=== PATIENT | male | born 1960 | race Hispanic/Latino ===

== ENCOUNTER 2023-03-05 05:58 | Day surgery (SDC) | payer OTHER ==
[2023-02-28 12:26] VITALS: BP 178/91; PULSE 79; RESP 19
[2023-02-28 12:32] LABS: BASOPHILS # (AUTO) 0.02 K/uL (0.00-0.20); BASOPHILS % (AUTO) 0.5 % (0.0-5.0); EOSINOPHILS # (AUTO) 0.11 K/uL (0.00-0.70); IMMATURE GRANULOCYTE ABSOLUTE 0.01 K/uL (0-1); LYMPHOCYTES # (AUTO) 1.4 K/uL (1.0-4.8); LYMPHOCYTES % (AUTO) 37.3 % (21.0-51.0); MEAN CORPUSCULAR HEMOGLOBIN 34.7 pg (27.0-33.0); MEAN CORPUSCULAR HGB CONC 34.8 g/dL (32.0-36.0); MEAN CORPUSCULAR VOLUME 99.8 fL (79-99); MONOCYTES # (AUTO) 0.4 K/uL (0.1-1.0); MONOCYTES % (AUTO) 10.6 % (3.0-13.0); NEUTROPHILS # (AUTO) 1.8 K/uL (1.8-7.7); NEUTROPHILS % (AUTO) 48.3 % (40.0-77.0); PLATELET COUNT (AUTO) 150 K/uL (130-400); RED BLOOD CELL COUNT(AUTO) 4.21 MIL/uL (4.50-6.20); RED CELL DISTRIBUTION WIDTH 12.6 % (11.0-15.5); WHITE BLOOD COUNT (AUTO) 3.7 K/uL (4.8-10.8)
[2023-02-28 12:42] LABS: ADD UA MICROSCOPIC YES; APPEARANCE,URINE CLEAR (CLEAR); BILIRUBIN,URINE NEGATIVE (NEGATIVE); COLOR,URINE LIGHT-YELLOW (YELLOW); GLUCOSE, URINE (UA) NEGATIVE (NEGATIVE); KETONES,URINE NEGATIVE (NEGATIVE); LEUKOCYTE ESTERASE ,URINE NEGATIVE Leu/uL (NEGATIVE); NITRATE,URINE NEGATIVE (NEGATIVE); PH,URINE 5.5 (5.0-8.0); PROTEIN,URINE 30 mg/dL (NEGATIVE); UROBILINOGEN,URINE 0.2 mg/dL (0.2-1.0)
[2023-02-28 12:43] LABS: WBC,URINE 0-1 /HPF (0-1)
[2023-02-28 12:45] LABS: INR 1.04 (0.85-1.15)
[2023-02-28 12:46] LABS: PARTIAL THROMBOPLASTIN TIME 30.4 SEC (26.3-35.5)
[2023-02-28 12:52] LABS: CREATININE 0.9 mg/dL (0.5-1.5); POTASSIUM 4.3 mmol/L (3.5-5.1)
[2023-02-28 12:54] LABS: B-TYPE NATRIURETIC PEPTIDE 625 pg/mL (0-100)
[~2023-03-05] VITALS: Ht 170.2 cm; Wt 114.4 kg
[2023-03-05] VITALS (11 sets, daily range): BP systolic 131–176; BP diastolic 82–102; PULSE 88–96; RESP 15–19
[~2023-03-05 05:58] MED LIST: ASPI-1005 PO; ATOR10 PO; CHOL100040 PO; FURO20TA4 PO; LISI20TA24 PO; METF-445 PO; METO25TA6 PO; POTA10CA85 PO; SLOMG PO; ZINC50TA64 PO
[2023-03-05] MEDS ORDERED: ALBU10.7 IH (07:14)
[2023-03-05] MEDS ORDERED: MIDAZOLAM HCL 1 MG/ML 2ML VIAL ONE ×2 (07:15→08:58)
[2023-03-05] MEDS ORDERED: LIDOCAINE HCL 400MG/20ML VIAL ONE (07:15)
[2023-03-05] MEDS ORDERED: 0.9%NACL 1000ML 1,000 ML IV ONE (07:16)
[2023-03-05] MEDS ORDERED: FENTANYL CITRATE PF 50 MCG/1 ML 2ML VIAL ONE (07:16)
[2023-03-05] MEDS ORDERED: NITROGLYCERIN 50MG VIAL ONE (07:16)
[2023-03-05] MEDS ORDERED: IOHEXOL 350 MG/ML 100ML INFUS..BTL IV ONE (07:16)
[2023-03-05] MEDS ORDERED: IOHEXOL-350 50ML VIAL IV ONE (07:16)
[2023-03-05] MEDS ORDERED: BIVALIRUDIN 250 MG/VIAL IV ONE (07:16)
[2023-03-05] MEDS ORDERED: LABETALOL 20MG SYG IV ONE ×2 (08:26→08:30)
[2023-03-05] MEDS ORDERED: HYDRALAZINE 20MG/ML VIAL ONE (08:43)
[2023-03-05] MEDS ORDERED: FUROSEMIDE 20MG VIAL ONE (09:22)
[2023-03-05] MEDS ORDERED: 0.9%NACL 10ML VIAL IVP SCH (09:30)
== END 2023-03-05 14:35 | disposition home or self-care (01) ==
LOC: DAH 05:58 → EDSTATUS 11:00 → DAH 14:35
PROVIDERS: ATTEND Internal Medicine Cardiovascular Disease
DX: I08.0 Rheumatic disorders of both mitral and aortic valves (principal); I25.119 Atherosclerotic heart disease of native coronary artery with unspecified angina pectoris; I27.20 Pulmonary hypertension, unspecified; I11.0 Hypertensive heart disease with heart failure; I50.32 Chronic diastolic (congestive) heart failure; E11.9 Type 2 diabetes mellitus without complications; J45.909 Unspecified asthma, uncomplicated; Z79.01 Long term (current) use of anticoagulants; Z79.899 Other long term (current) drug therapy; Z86.16 Personal history of COVID-19; Z98.890 Other specified postprocedural states; Z88.0 Allergy status to penicillin; Z79.82 Long term (current) use of aspirin
CPT/HCPCS: 80048; 83880; 85025; 85610; 85730; 81001; 36415; 71045; 93005; 93460; C1769 ×3; C1894 ×3; C1760; C1893 ×2; Q9965 ×2; J3010; J3490 ×2; J7030; J0360; J2250 ×2; J1940; J1644 ×2; Q9967; A4615; A4215; A4335; A4222; A4221; A4663; A4216; A4606; A4223 ×3; A4554; 99156; 99157; J0583